=== PATIENT | female | born 1985 ===

== ENCOUNTER 2024-12-31 10:09 | Emergency (ER) | payer MEDICAID, SELFPAY ==
--- OUTSIDE RECORDS SUMMARY | 2015-07-18 23:00 | XMS_ITS | Encounter Summary ---
Author Organization [facility] Address [address] [place] [address] Care Team Providers Care Tank Builder Supervisor Name Role Phone Leslie Peters MD Primary Care Provider Encounter Details Date Type Department Care Team (Latest Contact Info) Description 07/19/2015 Hospital Encounter [facility] External Film [address] [place] [address] History of mammography, screening Social History Tobacco Use Types Packs/Day Years Used Date Smoking Tobacco: Never Smokeless Tobacco: Never Alcohol Use Standard Drinks/Week Comments No 0 (1 standard drink = 0.6 oz pur e alcohol) Comments Unknown Sex and Gender Information Value Date Recorded Sex Assigned at Not on file Legal Sex Female 10:26 AM EST Gender Identity Not on file Sexual Orientation Not on file documented as of this encounter Plan of Treatment Not on file documented as of this encounter Procedures Procedure Name Priority Date/Time Associated Diagnosis Comments MG MAMMO OUTSIDE IMAGES (NO INTERPRETATION) Routine 06/22/2020 12:51 PM EDT History of mammography, screening documented in this encounter Results * MG Mammo outside images (no interpretation) (06/22/2020 12:51 PM EDT) Narrative SHANNANCS_AF - 06/22/2020 12:51 PM EDT This order has been auto-finalized and does not contain a result. us Order Transcribing User IMG BI PROCEDURES Final Result RISPACS_AF documented in this encounter Visit Diagnoses Diagnosis History of mammography, screening documented in this encounter Care Teams Tank Builder Supervisor Relationship Specialty Start Date End Date Leslie Peters MD [address] [place] [phone] PCP - General 06/07/10 06/08/20 documented as of this encounter
--- OUTSIDE RECORDS SUMMARY | 2016-08-13 23:00 | XMS_ITS | Encounter Summary ---
Author Organization [facility] Address [address] [place] [address] Care Team Providers Care Hydroelectric Production Technician Name Role Phone Leslie Peters MD Primary Care Provider Encounter Details Date Type Department Care Team (Latest Contact Info) Description 08/14/2016 Hospital Encounter [facility] External Film [address] [place] [address] History of mammography, screening Social [...] MAMMO OUTSIDE IMAGES (NO INTERPRETATION) Routine 06/22/2020 12:45 PM EDT History of mammography, screening documented in this encounter Results * MG Mammo outside images (no interpretation) (06/22/2020 12:45 PM EDT) Narrative SHANNANCS_AF - 06/22/2020 12:45 PM EDT This order has been auto-finalized and does not contain a result. us Order Transcribing User IMG BI PROCEDURES Final Result RISPACS_AF documented in this encounter Visit Diagnoses Diagnosis History of mammography, screening documented in this encounter Care Teams Hydroelectric Production Technician Relationship Specialty Start Date End Date Leslie Peters MD [address] [place] [phone] PCP - General 06/07/10 06/08/20 documented as of this encounter
--- OUTSIDE RECORDS SUMMARY | 2017-10-29 23:00 | XMS_ITS | Encounter Summary ---
Author Organization [facility] Address [address] [place] [address] Care Team Providers Care Methodologist Name Role Phone Leslie Peters MD Primary Care Provider [phone] Encounter Details Date Type Department Care Team (Latest Contact Info) Description 10/30/2017 Hospital Encounter [facility] External Film [address] [place] [address] History of mammography, screening Social [...] MAMMO OUTSIDE IMAGES (NO INTERPRETATION) Routine 06/22/2020 12:40 PM EDT History of mammography, screening documented in this encounter Results * MG Mammo outside images (no interpretation) (06/22/2020 12:40 PM EDT) Narrative SHANNANCS_AF - 06/22/2020 12:40 PM EDT This order has been auto-finalized and does not contain a result. us Order Transcribing User IMG BI PROCEDURES Final Result RISPACS_AF documented in this encounter Visit Diagnoses Diagnosis History of mammography, screening documented in this encounter Care Teams Methodologist Relationship Specialty Start Date End Date Leslie Peters MD [address] [place] [phone] PCP - General 06/07/10 06/08/20 documented as of this encounter
--- OUTSIDE RECORDS SUMMARY | 2020-06-09 09:10 | XMS_ITS | Encounter Summary ---
[facility] [place] [address] Care Team Providers Care Spring Assembler Supervisor Name Role Phone Ruben Levy Primary Care Provider [phone] Encounter Details Date Type Department Care Team (Late st Contact Info) Description 06/09/2020 10:10 AM EDT Hospital Encounter TH HISTORIC ENCOUNTERS EASTERN CONVERSION ONLY Ruben Levy PA [address] [facility] [phone] Social History Tobacco Use Types Packs/Day Years [...] Procedure Name Priority Date/Time Associated Diagnosis Comments 3D DIGITAL ALAINA SCREEN BILAT W/CAD Routine 06/16/2020 8:09 AM EDT documented in this encounter Results * 3D DIGITAL ALAINA SCREEN BILAT W/CAD (06/16/2020 8:09 AM EDT) Anatomical Region Laterality Modality Mammography 06/09/2020 10:4 2 AM EDT Narrative 06/16/2020 8:09 AM EDT EXAMINATION: [id number] - MG 3D Dig Alaina Screen Bilat w/CA [id number] Exam Date: Jun 09 2020 WORKING DIAGNOSIS: family history of breast cancer Clinical History: 34 years old, Female, routine annual mammography. No active breast symptoms. Clinical breast exam October 2019. Family history of breast cancer in mother diagnosed at age 42 and grandmothers. Baseline mammogram, no prior exams are available for comparison Bilateral MLO and CC tomosynthesis imaging was performed. There are scattered fibroglandular densities. No mass, architectural distortion, or suspicious microcalcifications are visualized. IMPRESSION: BI-RADS 2. FINAL ASSESSMENT: BENIGN FINDINGS. No mammographic evidence of malignancy. Breast density B - scattered fibroglandular densities. In the absence of clinical findings, a screening mammogram should be obtained annually. Computer aided detection was utilized. A reminder will be sent to the patient at the time of next routine mammogram. This study was reviewed utilizing CAD R2 version 1.3. INTERPRETED BY: BOOGIE BERNARD MD, PHD on Jun 09 2020 10:42A Transcribed by: on Jun 09 2020 10:42A Approved Electronically by: BOOGIE BERNARD MD, PHD on Jun 16 2020 8:07A The patient information was entered into a reminder system with a target due date for the next mammogram. Procedure Note Boogie Bernard MD - 06/17/2020 EXAMINATION: [id number] - MG 3D Dig Alaina Screen Bilat w/CA [id number] Exam Date: Jun 09 2020 WORKING DIAGNOSIS: family history of breast cancer Clinical History: 34 years old, Female, routine annual mammography. No active breast symptoms. Clinical breast exam October 2019. Family history of breast cancer in mother diagnosed at age 42 and grandmothers. Baseline mammogram, no prior exams are available for comparison Bilateral MLO and CC tomosynthesis imaging was performed. There are scattered fibroglandular densities. No mass, architectural distortion, or suspicious microcalcifications are visualized. IMPRESSION: BI-RADS 2. FINAL ASSESSMENT: BENIGN FINDINGS. No mammographic evidence of malignancy. Breast density B - scattered fibroglandular densities. In the absence of clinical findings, a screening mammogram should be obtained annually. Computer aided detection was utilized. A reminder will be sent to the patient at the time of next routine mammogram. This study was reviewed utilizing CAD R2 version 1.3. INTERPRETED BY: BOOGIE BERNARD MD, PHD on Jun 09 2020 10:42A Transcribed by: on Jun 09 2020 10:42A Approved Electronically by: BOOGIE BERNARD MD, PHD on Jun 16 2020 8:07A The patient information was entered into a reminder system with a target due date for the next mammogram. Ruben LEMONS IMG BI PROCEDURES Final Result documented in this encounter Visit Diagnoses Not on filedocumented in this encounter Care Teams Spring Assembler Supervisor Relationship Specialty Start Date End Date Ruben Levy PA [address] [place] [phone] PCP - General 06/09/20 09/20/21 documented as of this encounter
[2024-12-31 10:25] VITALS: BP 212/81; PULSE 83; RESP 18; TEMP 36.8; O2SAT 97; BMI 29.6
--- NOTE | 2024-12-31 10:27 | ED_ITS ---
HPI - General Adult General Chief complaint: Allergic Reaction Stated complaint: allergic reaction Time Seen by Provider: 12/31/24 10:30 Source: patient Mode of arrival: ambulatory Limitations: no limitations History of Present Illness ED Provider: CRISTO Fermin HPI narrative: Chief Complaint: ?I developed an itchy rash after increasing my Lamictal dose yesterday.? History of Present Illness: The patient is a female who has been taking Lamictal 25 mg daily for a little over two weeks. Per her psychiatrist?s titration schedule, she increased the do se to 50 mg (two 25 mg tablets) yesterday morning. She also took Meloxicam 15 mg that morning which she has not done previously. She experienced a stomachache after ibuprofen in the past but never a rash. The rash began in the early evening yesterday, initially localized but spreading overnight, and is described as ?very itchy and painful and everywhere. She took Zyrtec yesterday without relief. She reports chills and intermittent fevers that she attributes to a known autoimmune disorder ( this is normal for her). She denies shortness of breath or difficulty speaking and feels her breathing is normal. No prior immediate reactions to Lamictal or NSAIDs were noted. She drove herself to the ED for evaluation. Related Data Previous Rx's ?Medication ?Instructions ?Recorded diphenhydramine HCl 25 mg capsule 25 mg PO TID PRN all ergic reaction 12/31/24 (Benadryl) #20 caps epinephrine 0.3 mg/0.3 mL 0.3 mg (0.3 mL) IM Q4H PRN 1 03/02/24 injection, auto-injector (EpiPen anaphylaxis #2 ea 2-Richard) prednisone 20 mg tablet 60 mg (3 x 20 mg) PO DAILY 5 days 12/31/24 #15 tabs Allergies Allergy/AdvReac Type Severity Reaction Status Date / Time No Known Allergies Allergy Verified 12/31/24 10:27 Review of Systems Review of Systems: Review of Systems: * Dermatologic: Diffuse itchy rash, onset yesterday evening, spreading overnight. * Constitutional: Chills; episodic fevers (baseline with autoimmune disorder). * Respiratory: Denies shortness of breath; breathing feels normal. * ENT: No difficulty swallowing reported. * GI: No nausea, vomitin, abdominal pain Yes all other systems are reviewed and are negative PMFSH Past Medical History Attestation statement: The following information was validated with the patient. Source: old records reviewed and nursing notes reviewed Social History Social History Advance Directives: No Advance Directives Information Provided: No Physical Exam ED Exam Exam: Appearance: Alert.? Oriented X3.? No acute distress.? Head: Normocephalic, atraumatic, no step-offs or deformities Eyes: Pupils equal, round and reactive to light.? ENT: Pharynx normal.? Neck: Normal inspection.? Neck supple.? CVS: Normal heart rate and rhythm.? Pulses normal.? Respiratory: No respiratory distress.? Breath sounds normal.? Abdomen: Soft and nontender.? Skin: Skin warm and dry.? Normal skin color.? Normal skin turgor.?+ there are circular patches that are itchy and raised throughout patient's entire body sparing mucous membranes. A few of the patches to ventral forearms b/l appear to look like target lesions Extremities: No lower extremity edema.? No calf ttp. 5/5 strength to bilateral upper and lower extremities Back: No midline tenderness, no C-spine tenderness, full range of motion, no CVA tenderness bilaterally Neuro: Oriented X 3.? No motor deficit.? No sensory deficit. CN 2-12 intact Vital Signs: Vital Signs - 24 hr 12/31/24 10:25 12/31/24 10:30 Temperature 98.3 F Pulse Rate 83 Respiratory Rate 18 Blood Pressure 212/81 H 142/67 H Pulse Oximetry 97 Oxygen Delivery Method Room Air BMI result Body Mass Index 29.6 vss Course Course Course Narrative: RME: 39 yold female presents to the ED for allergic reaction. Patient states itchy rash began during the night and is now generalized. negative for lip swelling, tongue swelling, or uvula swellingt. patient Reevaluation(s) Reevaluation #1: Given the presentation I did discuss this case with my attending who is currently evaluating patient Time: 11:21 Reevaluation #2: My attending evaluated patient who states he does not suspect Jori Joseph syndrome or TEN Time: 11:26 Reevaluation #3: Educated patient on diagnosis and treatment plan, answered all question, patient verbalizes understanding. At this time patient will be discharged home, advised to return with new or worsening symptoms. Educated on worrisome signs and symptoms and when to return. At this time I feel comfortable discharge home. Time: 11:26 Medical Decision Making Medical Decision Making MDM Narrative: 1110 The presentation is most consistent with a drug eruption/allergic reaction, most likely related to recent Lamictal dose increase versus less likely NSAID exposure. Problem #1: Possible drug eruption / allergic reaction (Lamotrigine vs NSAID) Assessment: Diffuse pruritic rash beginning within ~12 hrs of Lamictal dose increase; no current airway compromise. Chills present; no SOB or dysphagia. Exam shows patent airway and diffuse rash. Plan: * Prednisone 60 mg daily (20 mg tablets, 3 tablets once daily) ? 5 days; instruct patient to take before 3?4 PM to reduce insomnia risk. * Prescribe EpiPen for emergency use; patient educated on signs of anaphylaxis (shortness of breath, difficulty swallowing, nausea, vomiting, diarrhea) and instructed to use EpiPen and call EMS if these occur. * D/C lamictal and follow up with psych * Outpatient follow-up with Allergy & Immunology; phone number provided at discharge. * Return precautions: Worsening rash, new respiratory symptoms, swelling of face/tongue, persistent fever, or any concern for anaphylaxis. Differential Diagnosis Differential Diagnoses: The differential diagnosis associated with the presentation includes * Morbilliform drug eruption (most likely): Related to recent lamotrigine dose increase or NSAID exposure; timing and distribution are typical for a medication-induced exanthem. * Acute urticaria: Could represent an allergic reaction to lamotrigine, NSAIDs, or another trigger; less likely given the persistent, non-migratory nature of the rash. * Viral exanthem: Less likely due to close temporal association with medication changes and lack of other viral symptoms. * Autoimmune-related rash: Possible given history of autoimmune disorder, but l ess likely given the acute onset after medication exposure. * Contact dermatitis: Unlikely due to widespread distribution and lack of clear external exposure. * Early presentation of severe cutaneous adverse reactions (e.g., SJS/TEN): Considered due to lamotrigine exposure, but currently no mucosal involvement or systemic compromise. * Idiopathic or other less common causes: Other etiologies possible but less likely based on history and exam. Admission/Observation Consideration of admission/observation: Escalation of care including admission/observation considered (amalia ) External Record Review No previous visits Discharge Plan Discharge Clinical Impression: Morbilliform rash, Rash Patient Disposition: Home, Self-Care Instructions: Acute Rash (ED) Additional Instructions: Take your medications as prescribed. If you were prescribed antibiotics today, it is important that you take your medication to their entirety, do not skip any doses, do not finish them early. Follow-up with your primary care provider this week. Return to the emergency department with new or worsening symptoms. Such as fevers, chills, chest pain, shortness of breath, nausea, vomiting, dizziness, headache, vision changes, lethargy In case of emergency call 911 Please stop your Lamictal immediately and follow up with psychiatry and inform them that you had a reaction to this medication most likely. I have sent an EpiPen to your pharmacy. How to use an EpiPen: ? Place the orange tip against the middle of the outer thigh. ? Swing and push the auto-injector firmly into the thigh until it ?clicks? ? Hold firmly in place for three seconds?count slowly, ?1, 2, 3? An EpiPen has been sent to your pharmacy this should only be used in severe emergency such as inability to breathe trouble speaking, shortness breath or any signs of anaphylaxis as discussed. If he use an EpiPen it is crucial you come in to an emergency department to be evaluated as you can have a rebound effect. Please follow-up with an allergy doctor. Please follow-up with allergy and immunology Prescriptions: New prednisone 20 mg tablet 60 mg PO DAILY 5 Days Qty: 15 0RF diphenhydramine HCl [Benadryl] 25 mg capsule 25 mg PO TID PRN (Reason: allergic reaction) Qty: 20 0RF epinephrine [EpiPen 2-Richard] 0.3 mg/0.3 mL auto-injector 0.3 mg IM Q4H PRN (Reason: anaphylaxis) Qty: 2 0RF [facility]errals[facility] [Outside] - 3 days Physician,Unknown J [Primary Care Provider, Medical] Stand Alone Forms: Work/School Release Interventions: ED Discharge Assessment Last Done: 12/31/24 11:55 Discharge Date/Time: 12/31/24 11:56 Print Language: Slovenian
[2024-12-31 10:30] VITALS: BP 142/67
--- OUTSIDE RECORDS SUMMARY | 2024-12-31 11:53 | XMS_ITS | Clinical Summary ---
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) Uveitis 07/11/2010 DX:Uveitis Family History Medical History Relation Name Comments Arthritis Paternal Grandmother Relation Name Status Comments Paternal Grandmother Social History Tobacco Use Types Packs/Day Years Used Date Smoking Tobacco: Never Smokeless Tobacco: Never Alcohol Use Standard Drinks/Week Comments No 0 (1 standard drink = 0.6 oz pur e alcohol) Comments Unknown Sex and Gender Information Value Date Recorded Sex Assigned at Not on file Legal Sex Female 10:26 AM EST Gender Identity Not on file Sexual Orientation Not on file Obstetrics History Last Filed Vital Signs Vital Sign Reading Time Taken Comments Blood Pressure 114/74 09/21/2021 10:51 AM EDT Pulse 64 09/21/2021 10:51 AM EDT Temperature 36.6 C (97.9 F) 09/21/2021 7:20 AM EDT Respiratory Rate 18 09/21/2021 10:51 AM EDT Oxygen Saturation 100% 09/21/2021 10:51 AM EDT Inhaled Oxygen Concentration - - Weight 90.7 kg (200 lb) 09/21/2021 11:37 AM EDT Height 165.1 cm (5' 5 ) 09/21/2021 11:37 AM EDT Body Mass Index 33.28 09/21/2021 11:37 AM EDT Plan of Treatment Health Maintenance Due Date Last Done Comments DTaP,Tdap,and Td Vaccines (1 - Tdap) 2004 Hepatitis B Vaccines (1 of 3 - 19+ 3-dose series) 2004 Cervical Cancer Screening: P ap Smear 2006 HPV Vaccines (1 - 3-dose SCD M series) 2012 HIV Screening 01/18/2020 Hepatitis C Screening 01/18/2020 Social Influencers of Health Screening 01/18/2020 Depression Screening 02/11/2024 COVID-19 Vaccine (3 - 2024-2 6 season) 2024 06/30/2020, 06/09/2020 Influenza Vaccine (#1) 2024 RSV Immunization Adult Patients (1 - 1-dose 75+ series) 2060 HIB Vaccines Aged Out No longer eligi ble based on patient's age to complete this topic Hepatitis A Vaccines Aged Out No long er eligible based on patient's age to complete this topic IPV Vaccines Aged Out No longer eligi ble based on patient's age to complete this topic MMR Vaccines Aged Out No longer eligi ble based on patient's age to complete this topic Meningococcal ACWY Vaccine Aged Out N o longer eligible based on patient's age to complete this topic Meningococcal B Vaccine Aged Out No l onger eligible based on patient's age to complete this topic Pneumococcal Vaccine: Pediatrics (0 to 5 Years) and At-Risk Patients (6 to 49 Years) Aged Out No longer eligible b ased on patient's age to complete this topic RSV Immunization Patients Under 20 months Aged Out No longer eligible b ased on patient's age to complete this topic Varicella Vaccines Aged Out No longer eligible based on patient's age to complete this topic [place] Care Teams Sand Technologist Relationship Specialty Start Date End Date Physician, Pcp Unknown PCP - General 09/21/21
[2024-12-31 11:55] VITALS: BP 142/67; PULSE 80; RESP 16; TEMP 36.7; O2SAT 98
== END 2024-12-31 11:56 | disposition home or self-care (01) ==
PROVIDERS: Emergency Provider Emergency Medicine
DX: L27.1 Localized skin eruption due to drugs and medicaments taken internally (principal); L29.9 Pruritus, unspecified
CPT/HCPCS: 99282; 99283